=== PATIENT | male | born 1930 | race Two or more races ===

== ENCOUNTER 2019-01-13 11:27 | Emergency (ER) | payer OTHER ==
[~2019-01-13] VITALS: Ht 170.2 cm; Wt 45.4 kg
[~2019-01-13 11:27] MED LIST: HYDR50TA15 PO
[2019-01-13] MEDS ORDERED: ALBUTEROL SULF 2.5 MG/0.5ML(0.5%) NEB SOLN HHN ONE (11:45)
[2019-01-13] MEDS ORDERED: IPRATROPIUM BROM 0.5 MG/2.5ML INH SOL HHN ONE (11:45)
[2019-01-13] MEDS ORDERED: LEVOFLOXACIN 500MG 100 ML IV ONE (11:45)
[2019-01-13 11:50] VITALS: BP 68/29
== END 2019-01-13 20:57 | disposition expired ==
LOC: ER 11:27 → EDBD 11:27 → ER 20:57
DX: J96.00 Acute respiratory failure, unspecified whether with hypoxia or hypercapnia (principal); I10 Essential (primary) hypertension; R11.2 Nausea with vomiting, unspecified
CPT/HCPCS: 99291; J7611; J7644